=== PATIENT | female | born 2005 | race Asian ===

== ENCOUNTER 2023-11-20 04:36 | Emergency (ER) | payer BC ==
[~2023-11-20] VITALS: Ht 170.2 cm; Wt 65.8 kg
[2023-11-20 04:43] VITALS: BP_SYST 113; PULSE 87; RESP 22; TEMP 97.9; O2SAT 97
[2023-11-20 07:36] LABS: INFLUENZA TYPE A Negative (NEGATIVE); INFLUENZA TYPE B NEGATIVE (NEGATIVE)
[2023-11-20] MEDS ORDERED: AUG875 PO (07:42)
[2023-11-20 07:56] VITALS: BP_SYST 149; PULSE 81; RESP 20; TEMP 99.2; O2SAT 96
== END 2023-11-20 07:58 | disposition home or self-care (01) ==
LOC: SED 04:36
DX: J20.9 Acute bronchitis, unspecified (principal); R05.9 Cough, unspecified; R09.81 Nasal congestion; R51.9 Headache, unspecified; Z79.899 Other long term (current) drug therapy; Z20.822 Contact with and (suspected) exposure to COVID-19
CPT/HCPCS: 36415; 99283